=== PATIENT | male | born 1995 | race Hispanic/Latino ===

== ENCOUNTER 2018-10-22 02:05 | Emergency (ER) | payer MEDICAID, OTHER ==
[2018-10-22 02:53] LABS: Bilirubin Negative (Negative); Blood, Urine Trace (Negative); Clarity Slightly Cloudy (Clear); Glucose, Urine (Dipstick) Negative (Negative); Leukocyte Negative (Negative); Nitrite Negative (Negative); Protein, Urine (Dipstick) Negative (Neg-Trace); Specific Gravity, Urine 1.025 (1.005-1.030); Urobilinogen 0.2 mg/dL (0.2-1.0); pH, Urine 6.5 (5.0-9.0)
[2018-10-22 02:54] LABS: #Basophils 0.1 thou/uL (0.0-0.2); #Eosinphils 0.3 thou/uL (0.0-0.7); #Lymphocytes 2.1 thou/uL (1.20-3.40); #Monocytes 0.9 thou/uL (0.11-0.59); #Neutrophils 4.9 thou/uL (1.40-6.50); %Basophils 1.2 % (0.0-1.0); %Eosinophils 4.2 % (0.0-10.0); %Monocytes 10.5 % (0.0-10.0); %Neutrophils 59.2 % (42.0-75.0); Hemoglobin 15.1 g/dL (14.0-18.0); Mean Corpuscular HGB CONC 34.2 g/dL (32.0-36.0); Mean Corpuscular Hemoglobin 28.4 pg (27.0-31.0); Mean Platelet Volume 6.2 fL (7.4-10.4); Platelet Count 340 thou/uL (130-400); Red Blood Cell (RBC) Count 5.31 mill/uL (4.70-6.10); White Blood Cell (WBC) Count 8.4 thou/uL (4.8-10.8)
[2018-10-22 03:04] LABS: RBC/HPF 0-3 HPF (0-3); Squamous Epithelial 0-3 HPF (0-3); WBC/HPF 0-3 HPF (0-3)
[2018-10-22 03:05] LABS: Bacteria/HPF None Seen HPF (None Seen); Hyaline Casts/LPF NONE SEEN LPF (0-3 Hyaline)
[2018-10-22 03:06] LABS: ALT (SGPT) 23 U/L (8-55); AST (SGOT) 15 U/L (5-34); Albumin 4.3 g/dL (3.5-5.0); Alkaline Phosphatase 86 U/L (40-150); Anion Gap 13 mmol/L (10-20); BUN (Urea Nitrogen) 15 mg/dL (8.9-20.6); Bilirubin, Total 0.3 mg/dL (0.2-1.2); Calc. Creatinine Clearance 0 mL/min (70-130); Calcium 9.7 mg/dL (7.8-10.44); Carbon Dioxide 29 mmol/L (22-29); Chloride 99 mmol/L (98-107); Estimated GFR-MDRD Greater than 90; Globulin 3.7 g/dL (2.4-3.5); Glucose 97 mg/dL (70-105); Potassium 3.9 mmol/L (3.5-5.1); Sodium 137 mmol/L (136-145)
--- NOTE | 2018-10-22 07:38 | CT ---
PRELIMINARY REPORT/[facility]/EMERGENCY AFTER HOURS PROCEDURE: EXAM: CT Abdomen and Pelvis Without Contrast EXAM DATE/TIME: 10/22/2018 2:50 AM CLINICAL HISTORY: 23 years old, male; Pain; Abdominal pain; Flank; Right; Patient HX: Right flank pain with nausea and vomiting. Family hs of kidney stones TECHNIQUE: Imaging protocol: Axial computed tomography images of the abdomen and pelvis without contrast. Coronal reformatted images were created and reviewed. Radiation optimization: All CT scans at this facility use at least one of these dose optimization techniques: automated exposure control; mA and/or kV adjustment per patient size (includes targeted exams where dose is matched to clinical indication); or iterative reconstruction. COMPARISON: No relevant prior studies available. FINDINGS: Lower thorax: No consolidations. ABDOMEN: Liver: No mass. Gallbladder and bile ducts: No calcified stones. No ductal dilation. Pancreas: No mass or ductal dilation. Spleen: No mass. Adrenals: No mass. Kidneys and ureters: Simple cyst measuring 1.7 cm at the superior pole of the right kidney. No nephroureterolithiasis or hydronephrosis. Stomach and bowel: No obstruction or mucosal thickening. Appendix: Normal appendix. PELVIS: Bladder: The bladder is decompressed. Reproductive: Normal. ABDOMEN and PELVIS: Intraperitoneal space: No free air or free fluid. Bones/joints: No suspicious bone lesions. Soft tissues: No acute findings. Vasculature: No abdominal aortic aneurysm. Lymph nodes: No lymphadenopathy. IMPRESSION: 1. No acute findings in the abdomen or pelvis. 2. No evidence of appendicitis. 3. No nephroureterolithiasis or hydronephrosis. Thank you for allowing us to participate in the care of your patient. Dictated and Authenticated by: Luna Faulkner MD 10/22/2018 3:27 AM Central Time ([place] & [place]) FINAL REPORT CT ABDOMEN AND PELVIS NONCONTRAST PERFORMED ON AN EMERGENCY BASIS: Date: 10/22/18 Time: 0256 hours HISTORY: Right flank pain. FINDINGS/IMPRESSION: I agree with the preliminary report by Dr. Faulkner from [facility]. No CT evidence of urinary t ract obstruction or calcification. Lack of contrast decreases sensitivity of exam for other abnormalities. Small cyst superior pole right kidney. Code QA. Transcribed Date/Time: 10/22/2018 8:34 AM
== END 2018-10-22 03:35 | disposition home or self-care (01) ==
LOC: SCSER 02:05
DX: R10.9 Unspecified abdominal pain (principal); R31.9 Hematuria, unspecified
CPT/HCPCS: 36415; 74176; 80053; 81003; 81015; 85025